=== PATIENT | male | born 1975 | race American Indian/Alaskan Native ===

== ENCOUNTER 2021-03-10 13:04 | Emergency (ER) | payer OTHER ==
--- NOTE | 2021-03-10 14:29 | Emergency Department Report ---
ED ENT HPI - General Chief complaint: Dental/Oral Stated complaint: INFECTION ON TEETH Time Seen by Provider: 03/10/21 14:25 Source: patient Mode of arrival: Ambulatory Limitations: No Limitations - History of Present Illness Initial comments: Patient is a 45-year-old male presents emergency room complaints of right upper dental pain that began 3 days ago. He states he believes he has a dental infection. He states he last saw dentist 1 month ago and it was advised that he needed to have a dental extraction He states that he now has insurance and is planning to see a dentist. He denies any fever, nausea, vomiting, diarrhea, chills, facial swelling, difficulty swallowing, difficulty breathing. No past medical history. No allergies to medications. - Related Data Previous Rx's Medication Instructions Recorded Last Taken Type Chlorhexidine Mouthwash [Peridex] 15 ml MM BID #1 bottle 03/10/21 Unknown Rx Ibuprofen [Motrin 600 MG tab] 600 mg PO Q8H PRN #20 tablet 03/10/21 Unknown Rx Penicillin Vk [Veetids TAB] 500 mg PO QID 7 Days #56 tablet 03/10/21 Unknown Rx Allergies Allergy/AdvReac Type Severity Reaction Status Date / Time No Known Allergies Allergy Verified 03/10/21 13:36 ED Dental HPI - General Chief complaint: Dental/Oral Stated complaint: INFECTION ON TEETH Time Seen by Provider: 03/10/21 14:25 Source: patient Mode of arrival: Ambulatory Limitations: No Limitations - Related Data Previous Rx's Medication Instructions Recorded Last Taken Type Chlorhexidine Mouthwash [Peridex] 15 ml MM BID #1 bottle 03/10/21 Unknown Rx Ibuprofen [Motrin 600 MG tab] 600 mg PO Q8H PRN #20 tablet 03/10/21 Unknown Rx Penicillin Vk [Veetids TAB] 500 mg PO QID 7 Days #56 tablet 03/10/21 Unknown Rx Allergies Allergy/AdvReac Type Severity Reaction Status Date / Time No Known Allergies Allergy Verified 03/10/21 13:36 ED Review of Systems ROS: Stated complaint: INFECTION ON TEETH Other details as noted in HPI Comment: All other systems reviewed and negative ED Past Medical Hx - Past Medical History Previous Medical History?: No - Surgical History Past Surgical History?: No - Social History Smoking Status: Never Smoker Substance Use Type: None - Medications Home Medications: Home Medications Medication Instructions Recorded Confirmed Last Taken Type Chlorhexidine Mouthwash [Peridex] 15 ml MM BID #1 bottle 03/10/21 Unknown Rx Ibuprofen [Motrin 600 MG tab] 600 mg PO Q8H PRN #20 tablet 03/10/21 Unknown Rx Penicillin Vk [Veetids TAB] 500 mg PO QID 7 Days #56 tablet 03/10/21 Unknown Rx ED Physical Exam - General Limitations: No Limitations General appearance: alert, in no apparent distress - Head Head exam: Present: atraumatic, normocephalic - Eye Eye exam: Present: normal appearance - ENT ENT exam: Present: mucous membranes moist, other (there are a few dental carries present with cracked teeth, there is mild edema and induration of the gumline, no area of fluctuance, no facial edema, uvula is midline, no uvular edema or deviation, no trismus, no tongue elevation, no muffled voice, no trismus) - Respiratory Respiratory exam: Absent: respiratory distress, accessory muscle use - Neurological Exam Neurological exam: Present: alert, oriented X3 - Psychiatric Psychiatric exam: Present: normal affect, normal mood - Skin Skin exam: Present: warm, dry, intact ED Medical Decision Making - Medical Decision Making Patient is a 45-year-old male presents emergency room complaints of right upper dental pain that began 3 days ago. He states he believes he has a dental infection. He states he last saw dentist 1 month ago and it was advised that he needed to have a dental extraction He states that he now has insurance and is planning to see a dentist. He denies any fever, nausea, vomiting, diarrhea, chills, facial swelling, difficulty swallowing, difficulty breathing. No past medical history. No allergies to medications. Vitals are stable, advised nurse to chart in computer. on exam: there are a few dental carries present with cracked teeth, there is mild edema and induration of the gumline, no area of fluctuance, no facial edema, uvula is midline, no uvular edema or deviation, no trismus, no tongue elevation, no muffled voice, no trismus. Examination appears consistent with infected dental caries. No signs of facial cellulitis, facial abscess, or Ludwigs at this time. Given prescription for penicillin VK, chlorhexidine mouthwash, ibuprofen. Advised patient Please use medication as prescribed. Gargle with warm salt water. Please follow-up with a dentist. It is very important that you follow-up with a dentist. Return to emergency room for new or worsening symptoms. Critical care attestation.: If time is entered above; I have spent that time in minutes in the direct care of this critically ill patient, excluding procedure time. ED Disposition Clinical Impression: Infected dental caries Disposition: TO HOME OR SELFCARE Is pt being admited?: No Does the pt Need Aspirin: No Condition: Stable Additional Instructions: Please use medication as prescribed. Gargle with warm salt water. Please follow-up with a dentist. It is very important that you follow-up with a dentist. Return to emergency room for new or worsening symptoms. Prescriptions: Ibuprofen [Motrin 600 MG tab] 600 mg PO Q8H PRN #20 tablet PRN Reason: Pain Chlorhexidine Mouthwash [Peridex] 15 ml MM BID #1 bottle Penicillin Vk [Veetids TAB] 500 mg PO QID 7 Days #56 tablet Referrals: [facility] [Outside] - 2-3 Days Time of Disposition: 14:27 Print Language: [place]
== END 2021-03-10 15:30 | disposition home or self-care (01) ==
LOC: ED 13:04
DX: K02.9 Dental caries, unspecified (principal); Z79.1 Long term (current) use of non-steroidal anti-inflammatories (NSAID); Z79.899 Other long term (current) drug therapy
CPT/HCPCS: 99282